=== PATIENT | female | born 1990 | race Caucasian/White ===

== ENCOUNTER 2021-03-18 12:32 | Emergency (ER) | payer OTHER ==
[~2021-03-18] VITALS: Ht 160 cm; Wt 77.1 kg
[2021-03-18 13:18] VITALS: BP 104/71
[2021-03-18] MEDS ORDERED: LIDOCAINE 1% HCL (LOCAL ANESTH.) INJ 20ML MDV ID ONE (13:30)
[2021-03-18] MEDS ORDERED: NEOMYCIN-BACITRACIN-POLYM UNITDOSE PKG TOP OINT TOP ONE (13:45)
== END 2021-03-18 13:47 | disposition home or self-care (01) ==
LOC: ER 12:32
DX: L60.0 Ingrowing nail (principal)
CPT/HCPCS: 11730; 99284; J2001

== ENCOUNTER 2021-06-15 19:31 | Emergency (ER) | payer MEDICAID ==
[~2021-06-15] VITALS: Ht 165.1 cm; Wt 81.6 kg
[2021-06-15 19:38] VITALS: BP 126/79
[2021-06-15 20:13] LABS: Basophils # (auto) 0 10 ^3/uL (0-0.2); Basophils % (auto) 0.3 % (0.0-2.0); Eosinophils # (auto) 0.1 10 ^3/uL (0-0.8); Eosinophils % (auto) 1.5 % (0.0-7.0); Hematocrit 38.9 % (36.0-46.0); Hemoglobin 13.3 g/dL (12.2-16.2); Lymphocytes % (auto) 33.9 % (10.0-50.0); Mean Corpuscular Hgb Conc. 34.1 g/dL (32.0-36.0); Mean Corpuscular Volume 82.1 fL (80.0-100.0); Monocytes # (auto) 0.8 10 ^3/uL (0-1.3); Monocytes % (auto) 8.7 % (0.0-12.0); Neutrophils % (auto) 55.6 % (37.0-80.0); Red Blood Cells 4.74 10^6/uL (4.0-5.20); Red Cell Distribution Width 12.5 % (11.8-14.3); White Blood Cell 8.9 10^3/uL (4.4-10.8)
[2021-06-15 20:22] LABS: Albumin 3.9 g/dL (3.4-5.0); Calcium 8.9 mg/dL (8.5-10.1); Potassium 3.7 mmol/L (3.5-5.1)
[2021-06-15 20:24] LABS: BUN/Creatinine Ratio 15.7; Bilirubin, Total 0.2 mg/dL (0.2-1.0); Total Protein 8.5 g/dL (6.4-8.2)
[2021-06-15 20:50] LABS: Urine Bacteria FEW /hpf (None Seen); Urine Blood Negative /uL (Negative); Urine Mucus FEW (None Seen); Urine Specific Gravity 1.027 (1.001-1.035); Urine WBC 1 /hpf (0 - 5)
[2021-06-15] MEDS ORDERED: BARI1CAP OR (23:20)
[2021-06-15] MEDS ORDERED: HYDR-5192 EX (23:20)
[2021-06-15] MEDS ORDERED: PSYL0.5223 PO (23:20)
== END 2021-06-16 02:27 | disposition home or self-care (01) ==
LOC: ER 19:31 → EDBD 19:31 → ER 06-16 02:27
DX: K62.5 Hemorrhage of anus and rectum (principal); Z88.5 Allergy status to narcotic agent; Z88.8 Allergy status to other drugs, medicaments and biological substances
CPT/HCPCS: 36415; 80053; 81001; 82150; 83690; 84702; 85025

== ENCOUNTER 2021-10-14 19:24 | Emergency (ER) | payer MEDICAID ==
[~2021-10-14] VITALS: Ht 160 cm; Wt 73.2 kg
[2021-10-14 19:24] VITALS: BP 107/76
[~2021-10-14 19:24] MED LIST: BARI1CAP OR; HYDR-5192 EX; PSYL0.5223 PO
[2021-10-14] MEDS ORDERED: KETOROLAC TROMETH 30 MG/ML 1ML VIAL IM ONE (22:15)
[2021-10-14] MEDS ORDERED: AMOXICILLIN/CLAVUL 875 MG TAB PO ONE (22:15)
[2021-10-14] MEDS ORDERED: TETANUS-DIPTH-ACEL PERTUSSIS 0.5ML SYR Tdap IM ONE (22:15)
[2021-10-14] MEDS ORDERED: MUPIROCIN 2% OINT 15gm or 22gm TOP ONE (22:45)
[2021-10-14] MEDS ORDERED: IBUP800T26 PO (22:46)
[2021-10-14] MEDS ORDERED: AMOX-277 PO (22:46)
== END 2021-10-14 23:06 | disposition home or self-care (01) ==
LOC: ER 19:24
DX: S91.011A Laceration without foreign body, right ankle, initial encounter (principal); S81.852A Open bite, left lower leg, initial encounter; S91.051A Open bite, right ankle, initial encounter; Z79.899 Other long term (current) drug therapy; Z88.5 Allergy status to narcotic agent; Z88.8 Allergy status to other drugs, medicaments and biological substances; W54.0XXA Bitten by dog, initial encounter; Y93.89 Activity, other specified; Y92.89 Other specified places as the place of occurrence of the external cause; Y99.8 Other external cause status
CPT/HCPCS: 90471; 90715; 96372; 99284; J1885